=== PATIENT | male | born 1990 | race American Indian/Alaskan Native ===

== ENCOUNTER 2020-03-18 21:14 | Emergency (ER) | payer MEDICAID ==
--- NOTE | 2020-03-18 21:33 | Emergency Department Report ---
ED Psych HPI - General Stated Complaint: AMS Time Seen by Provider: 03/18/20 21:21 Source: EMS - History of Present Illness Initial Comments: Patient is 29 years old male with history of schizophrenia. Patient brought to the emergency room via EMS from home. Patient family called and stated that patient barricaded himself in his room. EMS stated patient very agitated and have to be chemically restrained with Versed 5 mg, Haldol 5 mg and Benadryl 50 mg. Upon arrival to the ER patient is in seclusion, sedated and unable to answer any question however patient vital signs stable with an oxygen saturation of 98% on room air and a blood pressure of 99/60. MD Complaint: altered mental status - Related Data Home Medications Medication Instructions Recorded Confirmed Last Taken ARIPiprazole [Abilify] 10 mg PO 3XW 03/20/20 03/20/20 Unknown Sertraline [Zoloft] 100 mg PO QDAY 03/20/20 03/20/20 Unknown Allergies Allergy/AdvReac Type Severity Reaction Status Date / Time No Known Allergies Allergy Verified 03/20/20 00:09 ED Review of Systems ROS: Stated complaint: AMS Other details as noted in HPI Comment: Unobtainable due to pts medical conditions ED Past Medical Hx - Medications Home Medications: Home Medications Medication Instructions Recorded Confirmed Last Taken Type ARIPiprazole [Abilify] 10 mg PO 3XW 03/20/20 03/20/20 Unknown History Sertraline [Zoloft] 100 mg PO QDAY 03/20/20 03/20/20 Unknown History ED Physical Exam - General General appearance: obtunded, other (sedated) - ENT ENT exam: Present: normal exam, normal orophraynx - Neck Neck exam: Present: normal inspection, full ROM. Absent: tenderness, menin gismus - Respiratory Respiratory exam: Present: normal lung sounds bilaterally - Cardiovascular Cardiovascular Exam: Present: regular rate, normal rhythm, normal heart sounds - GI/Abdominal GI/Abdominal exam: Present: soft. Absent: distended, tenderness, guarding, rebound, rigid - Back Exam Back exam: Present: normal inspection. Absent: CVA tenderness (R), CVA tenderness (L) - Neurological Exam Neurological exam: Present: altered - Skin Skin exam: Present: warm ED Course Vital Signs 03/18/20 03/18/20 03/18/20 21:25 22:55 23:55 Temperature 97.9 F Pulse Rate 62 79 125 H Respiratory 18 18 18 Rate Blood Pressure Blood Pressure 99/62 94/47 116/61 [Left] O2 Sat by Pulse 95 95 97 Oximetry 03/19/20 03/19/20 03/19/20 03:00 11:27 12:45 Temperature 97.8 F 98.5 F Pulse Rate 130 H 103 H 98 H Respiratory 18 18 Rate Blood Pressure 126/82 Blood Pressure 118/71 126/82 [Left] O2 Sat by Pulse 99 97 96 Oximetry 03/19/20 03/20/20 03/20/20 20:09 02:00 07:20 Temperature 98.4 F 98.1 F Pulse Rate 98 H 98 H Respiratory 18 16 18 Rate Blood Pressure Blood Pressure 117/99 102/64 [Left] O2 Sat by Pulse 99 97 96 Oximetry 03/20/20 03/20/20 03/20/20 08:00 20:01 20:15 Temperature 98.8 F 98.6 F Pulse Rate 98 H 115 H Respiratory 18 18 18 Rate Blood Pressure 118/75 Blood Pressure 112/72 [Left] O2 Sat by Pulse 96 98 98 Oximetry 03/21/20 03/21/20 03/21/20 09:12 09:22 20:13 Temperature 97.9 F 98.6 F Pulse Rate 80 80 93 H Respiratory 19 18 18 Rate Blood Pressure Blood Pressure 93/69 93/69 97/61 [Left] O2 Sat by Pulse 100 98 99 Oximetry 03/22/20 03/22/20 03/22/20 01:59 08:27 19:40 Temperature 98.2 F 96.8 F L 97.9 F Pulse Rate 73 71 91 H Respiratory 16 18 14 Rate Blood Pressure Blood Pressure 110/70 109/65 94/56 [Left] O2 Sat by Pulse 97 98 100 Oximetry 03/23/20 03/23/20 03/23/20 02:24 08:16 21:51 Temperature 97.6 F 97.9 F Pulse Rate 99 H 81 Respiratory 16 20 20 Rate Blood Pressure Blood Pressure 96/56 120/66 [Left] O2 Sat by Pulse 99 96 96 Oximetry 03/23/20 03/24/20 03/24/20 22:00 02:00 08:20 Temperature 98.3 F 98.4 F 97.6 F Pulse Rate 84 75 77 Respiratory 18 20 20 Rate Blood Pressure Blood Pressure 112/75 118/67 115/72 [Left] O2 Sat by Pulse 99 98 98 Oximetry 03/24/20 03/25/20 03/25/20 19:53 02:27 11:37 Temperature 97.9 F 97.6 F 99.3 F Pulse Rate 98 H 78 83 Respiratory 18 18 16 Rate Blood Pressure 114/72 Blood Pressure 112/68 99/53 [Left] O2 Sat by Pulse 96 100 100 Oximetry 03/25/20 03/26/20 20:13 02:18 Temperature 98.8 F 97.9 F Pulse Rate 101 H 97 H Respiratory 18 18 Rate Blood Pressure Blood Pressure 122/68 117/72 [Left] O2 Sat by Pulse 98 100 Oximetry ED Medical Decision Making - Lab Data Result diagrams: 03/18/20 21:39 03/18/20 21:39 Critical care attestation.: If time is entered above; I have spent that time in minutes in the direct care of this critically ill patient, excluding procedure time. ED Disposition Clinical Impression: Acute psychosis Disposition: DC/TX-65 PSY HOSP/PSY UNIT Is pt being admited?: No Condition: Stable Referrals: PRIMARY CARE, [Primary Care Provider] - 3-5 Days
[2020-03-18 21:56] LABS: Basophils % (Auto) 0.5 % (0.0-1.8); Hematocrit 50.3 % (35.5-45.6); Hemoglobin 16.5 gm/dl (11.8-15.2); Lymphocytes # (Auto) 0.5 K/mm3 (1.2-5.4); Lymphocytes % (Auto) 8.2 % (13.4-35.0); Mean Corpuscular HGB Conc 33 % (32-34); Mean Corpuscular Volume 89 fl (84-94); Monocytes # (Auto) 0.4 K/mm3 (0.0-0.8); Monocytes % (Auto) 5.6 % (0.0-7.3); Platelet Count 165 K/mm3 (140-440); Red Blood Count 5.62 M/mm3 (3.65-5.03); Red Cell Distribution Width 13.8 % (13.2-15.2)
[2020-03-18 22:17] LABS: BUN/Creatinine Ratio 11; Blood Urea Nitrogen 11 mg/dL (9-20); Calcium 9.4 mg/dL (8.4-10.2); Hemolysis Index 28
[2020-03-19 05:11] LABS: Bilirubin,Urine NEG (Negative); Blood,Urine NEG (Negative); Color,Urine Yellow (Yellow); Mucus,Urine FEW /HPF; WBC,Urine < 1.0 /HPF (0.0-6.0)
[2020-03-19 05:20] LABS: Amphetamine Screen,Urine PRESUMPTIVE NEGATIVE; Benzodiazepines Screen,Urine PRESUMPTIVE POSITIVE; Cannabinoid Screen,Urine PRESUMPTIVE NEGATIVE; Cocaine Screen,Urine PRESUMPTIVE NEGATIVE; Methadone Screen,Urine PRESUMPTIVE NEGATIVE; Opiate Screen,Urine PRESUMPTIVE NEGATIVE
[2020-03-20] MEDS ORDERED: HALOPERIDOL LACTATE 5 MG/1 ML INJ ONE (00:07)
[2020-03-20] MEDS ORDERED: HALOPERIDOL LACTATE 5 MG/1 ML INJ IM PRN (00:08)
[2020-03-20] MEDS ORDERED: LORazepam 2 MG/ML VIAL IM PRN (00:08)
[2020-03-20] MEDS ORDERED: LORazepam 2 MG/ML VIAL ONE (00:08)
[2020-03-20] MEDS ORDERED: BACITRACIN ZINC OINT 28.4 GM TP STA (00:13)
[2020-03-20] MEDS ORDERED: DIPHtheria,PERTUSSIS(ACELL),TETANUS VACCINE/PF 0.5 ML VIAL IM ONE ×2 (00:15→02:58)
--- NOTE | 2020-03-20 00:16 | Event Note ---
Date: 03/20/20 The patient was evaluated in the emergency department for symptoms described in the history of present illness. He/she was evaluated in the context of the global COVID-19 pandemic, which necessitated consideration that the patient might be at risk for infection with the virus that causes COVID-19. Institutional protocols and algorithms that pertain to the evaluation of patients at risk for COVID-19 are in a state of rapid change based on information released by regulatory bodies including the CDC and federal and state organizations. These policies and algorithms were followed during the patient's care in the emergency department. Please note that these policies, procedures and recommendations changed on a rapid basis. The nursing team asked me to evaluate this patient after the patient was involved in a code rodriguez. Apparently, the patient ran out of department, and was jumping up and down on cars. He is escorted back by security, is found to have bilateral abrasions and skin avulsions on his bilateral elbows. He is awake, protecting his airway, moving 4 extremities, and has no long bony tenderness. Elbows have full range of motion, with no tenderness or step-offs, skin avulsions appear to be superficial. Patient still acutely psychotic and disorganized, he is placed on hold status and in seclusion, as needed haloperidol, Ativan ordered, wound care/bacitracin ordered, and a tetanus vaccination is ordered. A psychiatric evaluation is requested. Patient does not appear to have any significant traumatic injuries at this time that would preclude a psychiatric consultation, evaluation and placement. Vital Signs 03/18/20 03/18/20 03/18/20 21:25 22:55 23:55 Temperature 97.9 F Pulse Rate 62 79 125 H Respiratory 18 18 18 Rate Blood Pressure 99/62 94/47 116/61 [Left] O2 Sat by Pulse 95 95 97 Oximetry 03/19/20 03/19/20 03/19/20 03:00 12:45 20:09 Temperature 97.8 F 98.5 F 98.4 F Pulse Rate 130 H 98 H 98 H Respiratory 18 18 18 Rate Blood Pressure 118/71 126/82 117/99 [Left] O2 Sat by Pulse 99 96 99 Oximetry Lab Results 03/18/20 03/18/20 03/18/20 Range/Units 21:39 21:39 21:39 WBC 6.3 (4.5-11.0) K/mm3 RBC 5.62 H (3.65-5.03) M/mm3 Hgb 16.5 H (11.8-15.2) gm/dl Hct 50.3 H (35.5-45.6) % MCV 89 (84-94) fl MCH 29 (28-32) pg MCHC 33 (32-34) % RDW 13.8 (13.2-15.2) % Plt Count 165 (140-440) K/mm3 Lymph % (Auto) 8.2 L (13.4-35.0) % [place] % (Auto) 5.6 (0.0-7.3) % Eos % (Auto) 0.0 (0.0-4.3) % Baso % (Auto) 0.5 (0.0-1.8) % Lymph # (Auto) 0.5 L (1.2-5.4) K/mm3 [place] # (Auto) 0.4 (0.0-0.8) K/mm3 Eos # (Auto) 0.0 (0.0-0.4) K/mm3 Baso # (Auto) 0.0 (0.0-0.1) K/mm3 Seg Neutrophils % 85.7 H (40.0-70.0) % Seg Neutrophils # 5.4 (1.8-7.7) K/mm3 Sodium 144 (137-145) mmol/L Potassium 4.7 (3.6-5.0) mmol/L Chloride 107.8 H (98-107) mmol/L Carbon Dioxide 21 L (22-30) mmol/L Anion Gap 20 mmol/L BUN 11 (9-20) mg/dL Creatinine 1.0 (0.8-1.3) mg/dL Estimated GFR > 60 ml/min BUN/Creatinine Ratio 11 % Glucose 113 H (75-100) mg/dL Calcium 9.4 (8.4-10.2) mg/dL Urine Color (Yellow) Urine Turbidity (Clear) Urine pH (5.0-7.0) Ur Specific [place] (1.003-1.030) Urine Protein (Negative) mg/dL Urine Glucose (UA) (Negative) mg/dL Urine Ketones (Negative) mg/dL Urine Blood (Negative) Urine Nitrite (Negative) Urine Bilirubin (Negative) Urine Urobilinogen (<2.0) mg/dL Ur Leukocyte Esterase (Negative) Urine WBC (Auto) (0.0-6.0) /HPF Urine RBC (Auto) (0.0-6.0) /HPF Urine Mucus /HPF Salicylates < 0.3 L (2.8-20.0) mg/dL Urine Opiates Screen Urine Methadone Screen Acetaminophen (10.0-30.0) ug/mL Ur Barbiturates Screen Ur Phencyclidine Scrn Ur Amphetamines Screen U Benzodiazepines Scrn Urine Cocaine Screen U Marijuana (THC) Screen Drugs of Abuse Note Plasma/Serum Alcohol (0-0.07) % 03/18/20 03/18/20 03/19/20 Range/Units 21:39 21:39 02:59 WBC (4.5-11.0) K/mm3 RBC (3.65-5.03) M/mm3 Hgb (11.8-15.2) gm/dl Hct (35.5-45.6) % MCV (84-94) fl MCH (28-32) pg MCHC (32-34) % RDW (13.2-15.2) % Plt Count (140-440) K/mm3 Lymph % (Auto) (13.4-35.0) % [place] % (Auto) (0.0-7.3) % Eos % (Auto) (0.0-4.3) % Baso % (Auto) (0.0-1.8) % Lymph # (Auto) (1.2-5.4) K/mm3 [place] # (Auto) (0.0-0.8) K/mm3 Eos # (Auto) (0.0-0.4) K/mm3 Baso # (Auto) (0.0-0.1) K/mm3 Seg Neutrophils % (40.0-70.0) % Seg Neutrophils # (1.8-7.7) K/mm3 Sodium (137-145) mmol/L Potassium (3.6-5.0) mmol/L Chloride (98-107) mmol/L Carbon Dioxide (22-30) mmol/L Anion Gap mmol/L BUN (9-20) mg/dL Creatinine (0.8-1.3) mg/dL Estimated GFR ml/min BUN/Creatinine Ratio % Glucose (75-100) mg/dL Calcium (8.4-10.2) mg/dL Urine Color Yellow (Yellow) Urine Turbidity Clear (Clear) Urine pH 6.0 (5.0-7.0) Ur Specific [place] 1.028 (1.003-1.030) Urine Protein 30 mg/dl (Negative) mg/dL Urine Glucose (UA) Neg (Negative) mg/dL Urine Ketones Tr (Negative) mg/dL Urine Blood Neg (Negative) Urine Nitrite Neg (Negative) Urine Bilirubin Neg (Negative) Urine Urobilinogen 2.0 (<2.0) mg/dL Ur Leukocyte Esterase Neg (Negative) Urine WBC (Auto) < 1.0 (0.0-6.0) /HPF Urine RBC (Auto) 1.0 (0.0-6.0) /HPF Urine Mucus Few /HPF Salicylates (2.8-20.0) mg/dL Urine Opiates Screen Urine Methadone Screen Acetaminophen 5.0 L (10.0-30.0) ug/mL Ur Barbiturates Screen Ur Phencyclidine Scrn Ur Amphetamines Screen U Benzodiazepines Scrn Urine Cocaine Screen U Marijuana (THC) Screen Drugs of Abuse Note Plasma/Serum Alcohol < 0.01 (0-0.07) % 03/19/20 Range/Units 02:59 WBC (4.5-11.0) K/mm3 RBC (3.65-5.03) M/mm3 Hgb (11.8-15.2) gm/dl Hct (35.5-45.6) % MCV (84-94) fl MCH (28-32) pg MCHC (32-34) % RDW (13.2-15.2) % Plt Count (140-440) K/mm3 Lymph % (Auto) (13.4-35.0) % [place] % (Auto) (0.0-7.3) % Eos % (Auto) (0.0-4.3) % Baso % (Auto) (0.0-1.8) % Lymph # (Auto) (1.2-5.4) K/mm3 [place] # (Auto) (0.0-0.8) K/mm3 Eos # (Auto) (0.0-0.4) K/mm3 Baso # (Auto) (0.0-0.1) K/mm3 Seg Neutrophils % (40.0-70.0) % Seg Neutrophils # (1.8-7.7) K/mm3 Sodium (137-145) mmol/L Potassium (3.6-5.0) mmol/L Chloride (98-107) mmol/L Carbon Dioxide (22-30) mmol/L Anion Gap mmol/L BUN (9-20) mg/dL Creatinine (0.8-1.3) mg/dL Estimated GFR ml/min BUN/Creatinine Ratio % Glucose (75-100) mg/dL Calcium (8.4-10.2) mg/dL Urine Color (Yellow) Urine Turbidity (Clear) Urine pH (5.0-7.0) Ur Specific [place] (1.003-1.030) Urine Protein (Negative) mg/dL Urine Glucose (UA) (Negative) mg/dL Urine Ketones (Negative) mg/dL Urine Blood (Negative) Urine Nitrite (Negative) Urine Bilirubin (Negative) Urine Urobilinogen (<2.0) mg/dL Ur Leukocyte Esterase (Negative) Urine WBC (Auto) (0.0-6.0) /HPF Urine RBC (Auto) (0.0-6.0) /HPF Urine Mucus /HPF Salicylates (2.8-20.0) mg/dL Urine Opiates Screen Presumptive negative Urine Methadone Screen Presumptive negative Acetaminophen (10.0-30.0) ug/mL Ur Barbiturates Screen Presumptive negative Ur Phencyclidine Scrn Presumptive negative Ur Amphetamines Screen Presumptive negative U Benzodiazepines Scrn Presumptive positive Urine Cocaine Screen Presumptive negative U Marijuana (THC) Screen Presumptive negative Drugs of Abuse Note Disclamer Plasma/Serum Alcohol (0-0.07) %
--- NOTE | 2020-03-20 12:19 | Consultation ---
History of Present Illness - Reason for Consult Consult date: 03/20/20 Reason for consult: aggitated - History of Present Psychiatric Illness Rosa Clinton is a 29y/o male patient who was brought to the ER for barracding himself in his room and being agitated. While in ER the patient was stated to had ran out and jumped on top of cars. During my interview with the patient today, he is lying down. He seems somewhat subdued. The patient is slow to respond. He is responding to internal stimuli. He states "I almost ." The patient then says "voices were telling me to jump on cars. I almost ." He verbalizes feeling suicidal. He says he feels "worried." He denies any illicit drug use, alcohol or nicotine. He says he could not recall his medications. PAST PSYCHIATRIC HISTORY Diagnoses: Schizophrenia Suicide attempts or Self-harm behavior: once Prior psychiatric hospitalizations: Yes Substance Abuse history: Denies Previous psychiatric medications tried: could not recall Outpatient treatment: Denies PAST MEDICAL HISTORY: None reported Family Psychiatric History: None reported or documented SOCIAL HISTORY Marital Status: Single Living Arrangements: homeless Employment Status: Unemployed Access to guns/weapons: Denies Education: high school History of Abuse: Denies Legal History: Denies EVIEW OF SYSTEMS Constitutional: Negative for weight loss ENT: Negative for stridor Respiratory: Negative for cough or hemoptysis All other systems reviewed and are negative MENTAL STATUS EXAMINATION General Appearance and Behavior: Age appropriate, wearing appropriate clothes, staring, calm and cooperative Mood: "worried" Affect and affective range: congruent with mood Thought Process: responding to internal stimuli Thought Content: Hallucinations Speech: Normal volume, Regular rate and rhythm Suicidal Ideation: Yes Homicidal Ideation: Denies Hallucinations: Yes Delusions: None elicited Impulse Control: normal Insight and Judgment: Limited Memory/Cognition: Normal Attention: Normal Orientation: Alert, oriented Assessment Schizoaffective Disorder Plan Start Risperidone 0.25mg po BID Start Depakote DR 125mg po BID Start Trazodone 50mg po qhs Sitter: Defer to primary Medical: Per primary Disposition: Recommend acute inpatient treatment Will follow. Thank you for this consult. Medications and Allergies Allergies Allergy/AdvReac Type Severity Reaction Status Date / Time No Known Allergies Allergy Verified 03/20/20 00:09 Active Meds: Active Medications Haloperidol Lactate (Haldol) 5 mg IM Q6HR PRN PRN Reason: Agitation Last Admin: 03/20/20 00:15 Dose: 5 mg Documented by: Lorazepam (Ativan) 2 mg IM Q4HR PRN PRN Reason: Agitation Last Admin: 03/20/20 00:15 Dose: 2 mg Documented by: Mental Status Exam - Vital signs Last Vital Signs Temp 98.1 F 03/20/20 02:00 Pulse 98 H 03/20/20 02:00 Resp 16 03/20/20 02:00 BP 102/64 03/20/20 02:00 Pulse Ox 97 03/20/20 02:00 Results Result Diagrams: 03/18/20 21:39 03/18/20 21:39 All other labs normal.
[2020-03-20] MEDS: DIVALPROEX DR 125 MG TAB PO SCH ×2 (15:29→23:05)
[2020-03-20] MEDS: risperiDONE 0.25 MG TAB PO SCH ×2 (15:29→23:05)
[2020-03-20] MEDS: traZODone 50 MG TAB PO SCH (23:05)
--- NOTE | 2020-03-21 10:15 | Progress Note ---
Subjective - Reason for Consult Consult date: 03/21/20 Reason for consult: bizarre behavior - Chief Complaint Chief complaint: During my interview with the patient he is lying down, awake. He is responding to internal stimuli. He pauses in between his responses. His behavior is bizarre. The patient is staring as I walk into the room. When I address him, he says "you have the wrong person, my name is Latasha." He verbalizes voices telling him to "get out now." He says he is "worried over things." The reports still feeling suicidal. He says, "yes, I could have ." He continues to stare intensely as I'm exiting the room. REVIEW OF SYSTEMS Constitutional: Negative for weight loss ENT: Negative for stridor Respiratory: Negative for cough or hemoptysis All other systems reviewed and are negative MENTAL STATUS EXAMINATION General Appearance and Behavior: Age appropriate, wearing appropriate clothes, staring, calm and cooperative Mood: "worried" Affect and affective range: flat Thought Process: responding to internal stimuli Thought Content: Hallucinations Speech: Normal volume, Regular rate and rhythm Suicidal Ideation: Yes Homicidal Ideation: Denies Hallucinations: Yes Delusions: None elicited Impulse Control: normal Insight and Judgment: Limited Memory/Cognition: Normal Attention: Normal Orientation: Alert, oriented Assessment Schizoaffective Disorder Plan Increase Risperidone 0.5mg po BID Increase Depakote DR 250mg po BID Sitter: Defer to primary Medical: Per primary Disposition: Recommend acute inpatient treatment Will follow. Thank you for this consult. Mental Status Exam - Vital signs Last Vital Signs Temp 97.9 F 03/21/20 09:22 Pulse 80 03/21/20 09:22 Resp 18 03/21/20 09:22 BP 93/69 03/21/20 09:22 Pulse Ox 98 03/21/20 09:22
[2020-03-21] MEDS: risperiDONE 0.25 MG TAB PO SCH ×3 (12:00→23:08)
[2020-03-21] MEDS: DIVALPROEX DR 250 MG TAB PO SCH ×2 (12:00→23:09)
[2020-03-21] MEDS: DIVALPROEX DR 125 MG TAB PO SCH (17:53)
[2020-03-21] MEDS: traZODone 100 MG TAB PO SCH (23:09)
[2020-03-21] MEDS: traZODone 50 MG TAB PO SCH (23:11)
--- NOTE | 2020-03-22 07:41 | Progress Note ---
Subjective - Reason for Consult Consult date: 03/22/20 Reason for consult: MHE Requesting physician: MIKEL AMARAL - Chief Complaint Chief complaint: Psych Progress Patient seen in room still isolated, upon opening the door patient was asked me to step back and appears to start shaking, patient says his name is now Oz Srinivasan that his name is a catcher and is a transgender female patient states that he is currently awaiting a mental health hospital for does not know why and he likes it here at the moment. Patient then reported that he is thinking about killing me retracted his statement says he did not say that and did not mean it. Patient denies any thoughts of wanting to hurt self REVIEW OF SYSTEMS Constitutional: Negative for weight loss ENT: Negative for stridor Respiratory: Negative for cough or hemoptysis All other systems reviewed and are negative MENTAL STATUS EXAMINATION General Appearance and Behavior: Age appropriate, wearing appropriate clothes, staring, calm and cooperative Mood: "worried" Affect and affective range: flat Thought Process: responding to internal stimuli Thought Content: Hallucinations Speech: Normal volume, Regular rate and rhythm Suicidal Ideation: denies Homicidal Ideation: yes Hallucinations: Yes Delusions: Patient says he always been a woman and name is Rufus, based on history, no records of patient identifying self as a transgender female Impulse Control: impaired Insight and Judgment: Limited Memory/Cognition: Normal Attention: Normal Orientation: Alert, oriented Assessment Schizoaffective Disorder Treatment Plan MEDICATIONS: Gedon added to currrent medications Risks, benefits and alternatives of medications discussed with the patient, questions answered and consent obtained from patient. PSYCHOTHERAPY: Supportive psychotherapy provided MEDICAL: Per primary team DELIRIUM PRECAUTIONS: Please re-orient patient frequently, keep lights on during the day, and minimize benzodiazepines and opiates as these medications could worsen patient's confusion. SENIOR DEVOPS ENGINEER: DISPOSITION: Do Recommend acute inpatient psychiatric hospitalization at this time LEGAL STATUS: 1013 FOLLOW-UP: Will follow Thank you for the consult. Please contact with any questions and/or concerns. Mental Status Exam - Vital signs Last Vital Signs Temp 98.2 F 03/22/20 01:59 Pulse 73 03/22/20 01:59 Resp 16 03/22/20 01:59 BP 110/70 03/22/20 01:59 Pulse Ox 97 03/22/20 01:59
[2020-03-22] MEDS: DIVALPROEX DR 250 MG TAB PO SCH ×2 (10:26→21:45)
[2020-03-22] MEDS: risperiDONE 0.25 MG TAB PO SCH ×2 (10:26→21:42)
[2020-03-22] MEDS: ZIPRASIDONE 20 MG CAP PO SCH ×2 (13:00→21:44)
[2020-03-22] MEDS: traZODone 100 MG TAB PO SCH (21:45)
--- NOTE | 2020-03-23 11:23 | Progress Note ---
Subjective - Reason for Consult Consult date: 03/23/20 Reason for consult: MHE Requesting physician: MIKEL AMARAL - Chief Complaint Chief complaint: Psych Progress Patient still in seclusion, as soon as I walked into the room, patient yelled "fuck you" towards me, I asked patient why, he said I know, i asked again patient says because he is a transgender woman and patient then called me a "bithc". REVIEW OF SYSTEMS Constitutional: Negative for weight loss ENT: Negative for stridor Respiratory: Negative for cough or hemoptysis All other systems reviewed and are negative MENTAL STATUS EXAMINATION General Appearance and Behavior: Age appropriate, wearing appropriate clothes, staring, calm and cooperative Mood: "worried" Affect and affective range: flat Thought Process: responding to internal stimuli Thought Content: Hallucinations Speech: Normal volume, Regular rate and rhythm Suicidal Ideation: denies Homicidal Ideation: yes Hallucinations: Yes Delusions: Patient says he always been a woman and name is Rufus, based on history, no records of patient identifying self as a transgender female Impulse Control: impaired Insight and Judgment: Limited Memory/Cognition: Normal Attention: Normal Orientation: Alert, oriented Assessment Schizoaffective Disorder Treatment Plan MEDICATIONS: Gedon added to currrent medications Risks, benefits and alternatives of medications discussed with the patient, questions answered and consent obtained from patient. PSYCHOTHERAPY: Supportive psychotherapy provided MEDICAL: Per primary team DELIRIUM PRECAUTIONS: Please re-orient patient frequently, keep lights on during the day, and minimize benzodiazepines and opiates as these medications could worsen patient's confusion. FISHER OYSTER: DISPOSITION: Do Recommend acute inpatient psychiatric hospitalization at this time LEGAL STATUS: 1013 FOLLOW-UP: Will follow Thank you for the consult. Please contact with any questions and/or concerns. Mental Status Exam - Vital signs Last Vital Signs Temp 97.9 F 03/23/20 08:16 Pulse 81 03/23/20 08:16 Resp 20 03/23/20 08:16 BP 120/66 03/23/20 08:16 Pulse Ox 96 03/23/20 08:16
[2020-03-23] MEDS: DIVALPROEX DR 250 MG TAB PO SCH ×2 (12:36→23:14)
[2020-03-23] MEDS: risperiDONE 0.25 MG TAB PO SCH ×2 (12:36→23:15)
[2020-03-23] MEDS: ZIPRASIDONE 20 MG CAP PO SCH ×2 (12:43→23:14)
[2020-03-23] MEDS: traZODone 100 MG TAB PO SCH (23:15)
[2020-03-24] MEDS: risperiDONE 0.25 MG TAB PO SCH ×2 (09:59→21:49)
[2020-03-24] MEDS: ZIPRASIDONE 20 MG CAP PO SCH ×2 (09:59→21:53)
[2020-03-24] MEDS: DIVALPROEX DR 250 MG TAB PO SCH ×2 (09:59→21:53)
--- NOTE | 2020-03-24 10:09 | Progress Note ---
Subjective - Reason for Consult Consult date: 03/24/20 Reason for consult: MHE Requesting physician: MIKEL AMARAL - Chief Complaint Chief complaint: Psych Progress Patient still in seclusion, again after I walked into the room, patient yelled "fuck you" towards me, I asked patient to be nice, he then requested I call him a transgender woman and I obliged. Patient keeps saying yes or no to same questions. Has had no behavioral agitation, or being confrontation with staff, he has been medication compliant. REVIEW OF SYSTEMS Constitutional: Negative for weight loss ENT: Negative for stridor Respiratory: Negative for cough or hemoptysis All other systems reviewed and are negative MENTAL STATUS EXAMINATION General Appearance and Behavior: Age appropriate, wearing appropriate clothes, staring, calm and cooperative Mood: "good, not good" Affect and affective range: flat Thought Process: responding to internal stimuli Thought Content: Hallucinations Speech: Normal volume, Regular rate and rhythm Suicidal Ideation: denies Homicidal Ideation: yes Hallucinations: Yes Delusions: Patient says he always been a woman and name is Rufus, based on history, no records of patient identifying self as a transgender female Impulse Control: impaired Insight and Judgment: Limited Memory/Cognition: Normal Attention: Normal Orientation: Alert, oriented Assessment Schizoaffective Disorder Treatment Plan MEDICATIONS: Gedon added to currrent medications Risks, benefits and alternatives of medications discussed with the patient, qu estions answered and consent obtained from patient. PSYCHOTHERAPY: Supportive psychotherapy provided MEDICAL: Per primary team DELIRIUM PRECAUTIONS: Please re-orient patient frequently, keep lights on during the day, and minimize benzodiazepines and opiates as these medications could worsen patient's confusion. MEDICARE NURSE: DISPOSITION: Do Recommend acute inpatient psychiatric hospitalization at this time LEGAL STATUS: 1013 FOLLOW-UP: Will follow Thank you for the consult. Please contact with any questions and/or concerns. Mental Status Exam - Vital signs Last Vital Signs Temp 97.6 F 03/24/20 08:20 Pulse 77 03/24/20 08:20 Resp 20 03/24/20 08:20 BP 115/72 03/24/20 08:20 Pulse Ox 98 03/24/20 08:20
[2020-03-24] MEDS: traZODone 100 MG TAB PO SCH (21:53)
--- NOTE | 2020-03-25 07:54 | Progress Note ---
Subjective - Reason for Consult Consult date: 03/25/20 Reason for consult: MHE Requesting physician: MIKEL AMARAL - Chief Complaint Chief complaint: Psych Progress Patient still in seclusion, not reply to question prompts and only voiced the word "go" REVIEW OF SYSTEMS Constitutional: Negative for weight loss ENT: Negative for stridor Respiratory: Negative for cough or hemoptysis All other systems reviewed and are negative MENTAL STATUS EXAMINATION General Appearance and Behavior: Age appropriate, wearing appropriate clothes, staring, calm and cooperative Mood: na Affect and affective range: flat Thought Process: responding to internal stimuli Thought Content: Hallucinations based on history Speech: Normal volume, Regular rate and rhythm Suicidal Ideation: denies Homicidal Ideation: yes Hallucinations: Yes Delusions: Patient says he always been a woman and name is Rufus, based on history, no records of patient identifying self as a transgender female Impulse Control: impaired Insight and Judgment: Limited Memory/Cognition: Normal Attention: Normal Orientation: Alert, oriented Assessment Schizoaffective Disorder Treatment Plan MEDICATIONS: Gedon added to currrent medications Risks, benefits and alternatives of medications discussed with the patient, questions answered and consent obtained from patient. PSYCHOTHERAPY: Supportive psychotherapy provided MEDICAL: Per primary team DELIRIUM PRECAUTIONS: Please re-orient patient frequently, keep lights on during the day, and minimize benzodiazepines and opiates as these medications could worsen patient's confusion. [employer] SALESPERSON: DISPOSITION: Do Recommend acute inpatient psychiatric hospitalization at this time LEGAL STATUS: 1013 FOLLOW-UP: Will follow Thank you for the consult. Please contact with any questions and/or concerns. Mental Status Exam - Vital signs Last Vital Signs Temp 97.6 F 03/25/20 02:27 Pulse 78 03/25/20 02:27 Resp 18 03/25/20 02:27 BP 112/68 03/25/20 02:27 Pulse Ox 100 03/25/20 02:27
[2020-03-25] MEDS: risperiDONE 0.25 MG TAB PO SCH ×2 (11:38→22:14)
[2020-03-25] MEDS: DIVALPROEX DR 250 MG TAB PO SCH ×2 (11:38→22:11)
[2020-03-25] MEDS: ZIPRASIDONE 20 MG CAP PO SCH ×2 (11:38→22:13)
[2020-03-25] MEDS: traZODone 100 MG TAB PO SCH (22:11)
[2020-03-26 03:24] VITALS: BP 117/72
--- NOTE | 2020-03-26 08:59 | Progress Note ---
Subjective - Reason for Consult Consult date: 03/26/20 Reason for consult: MHE Requesting physician: MIKEL AMARAL - Chief Complaint Chief complaint: Psych Progress Patient still in seclusion, selectively mute, alert but non communicating. Patient has been accepted at [facility] but transport time is still pending REVIEW OF SYSTEMS Constitutional: Negative for weight loss ENT: Negative for stridor Respiratory: Negative for cough or hemoptysis All other systems reviewed and are negative MENTAL STATUS EXAMINATION General Appearance and Behavior: Age appropriate, wearing appropriate clothes, staring, calm and cooperative Mood: na Affect and affective range: flat Thought Process: responding to internal stimuli Thought Content: Hallucinations based on history Speech: Normal volume, Regular rate and rhythm Suicidal Ideation: denies Homicidal Ideation: yes Hallucinations: Yes Delusions: Patient says he always been a woman and name is Rufus, based on history, no records of patient identifying self as a transgender female Impulse Control: impaired Insight and Judgment: Limited Memory/Cognition: Normal Attention: Normal Orientation: Alert, oriented Assessment Schizoaffective Disorder Treatment Plan MEDICATIONS: Gedon added to currrent medications Risks, benefits and alternatives of medications discussed with the patient, questions answered and consent obtained from patient. PSYCHOTHERAPY: Supportive psychotherapy provided MEDICAL: Per primary team DELIRIUM PRECAUTIONS: Please re-orient patient frequently, keep lights on during the day, and minimize benzodiazepines and opiates as these medications could worsen patient's confusion. 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 Please contact with any questions and/or concerns. Mental Status Exam - Vital signs Last Vital Signs Temp 97.9 F 03/26/20 02:18 Pulse 97 H 03/26/20 02:18 Resp 18 03/26/20 02:18 BP 117/72 03/26/20 02:18 Pulse Ox 100 03/26/20 02:18
[2020-03-26] MEDS: DIVALPROEX DR 250 MG TAB PO SCH (12:15)
[2020-03-26] MEDS: risperiDONE 0.25 MG TAB PO SCH (12:15)
[2020-03-26] MEDS: ZIPRASIDONE 20 MG CAP PO SCH (12:15)
== END 2020-03-26 13:55 ==
LOC: ED 21:14
DX: F23 Brief psychotic disorder (principal); Z79.899 Other long term (current) drug therapy
CPT/HCPCS: 36415; 80048; 80307; 81001; 85025; 90471; 90715; 96372; 99285; J1630; J2060; 80320; G0480